=== PATIENT | female | born 1965 | race Caucasian/White ===

== ENCOUNTER → 2022-11-07 11:15 | Outpatient (BNVA) | payer BC, SELFPAY | PROVIDERS: PCP Physician Assistant Medical; Visit Provider Nurse Practitioner Family | DX: Z13.89 Encounter for screening for other disorder (principal) ==

== ENCOUNTER 2022-11-27 12:48 | Outpatient (REF) | payer BC, SELFPAY ==
--- NOTE | 2022-11-27 | EMG_ITS ---
Please see scanned EMG / Nerve Conduction Report. MTDD
== END 2022-11-27 12:49 | disposition home or self-care (01) ==
LOC: HO.NEURO 12:48
PROVIDERS: PCP Psychiatry & Neurology Psychiatry; Visit Provider Nurse Practitioner Family
DX: R20.2 Paresthesia of skin (principal)
CPT/HCPCS: 95885; 95913

== ENCOUNTER → 2023-02-06 09:13 | Outpatient (BNVA) | payer BC, SELFPAY | PROVIDERS: PCP Internal Medicine; Visit Provider Nurse Practitioner Family ==

== ENCOUNTER 2023-08-04 11:19 | Outpatient (AMB) | payer BC, SELFPAY ==
--- NOTE | 2023-08-04 11:29 | MHC.OFFVIS ---
Intake Vital Signs 08/04/23 11:31 Height 5 ft 1.5 in Weight 160 lb 4 oz BMI 29.8 BP 110/82 Blood Pressure Location Rt brachial Position Sitting Intake Visit Reasons: 6m follow up/Confirmed Intake Note: Patient presents for 6 month follow up. Patient states no issues or concerns today. Allergies No Known Allergies Allergy (Verified 08/04/23 11:32) Medication List - Last Reconciled 08/04/23 by CONNOR Reyes albuterol sulfate 90 mcg/actuation 2 puffs inhalation Q4-6H PRN aspirin (Aspirin Childrens) 81 mg orally QHS; 30 days gabapentin 200 mg PO TID levetiracetam 1,000 mg PO Q12H 30 days metoprolol tartrate (Lopressor) 50 mg PO DAILY rosuvastatin 20 mg PO DAILY valsartan-hydrochlorothiazide 160-12.5 mg (Diovan HCT) 1 tab PO DAILY HPI HPI Comments History of Present Illness Details 58-yr-old female presents for f/u visit. Pt is scheduled for a f/u intracranial aneurysm stenting at [facility] next week. Pt reports her last seizure like activity was a month or two ago- had the start of a seizure w/o loss of consciousness. Afterwards, she realized that she had skipped a dose of her Keppra. Very rarely may have an episode of sharlene vu. Headaches have been stable, not overly bothersome. Had been using Tylenol and Ibuprofen for an interval costochondritis- Iburpfen now on hold. Her neuropathy symptoms are not bothersome at this time. She has not done the lab work up yet- she did not realize she needed to. She notes that she just learned her son who is 30 has been diagnosed with seizure. His seizure symptoms are very similar to hers- sharlene vu sensation, nasal sensation, GI upset (although his is nausea where hers is a whooshing sensation), passing out, and mostly nocturnal. Her son would often fall asleep while driving and has been in many MVAs. Her maternal great grandfather would often pass out. She is concerned that she may have a genetic etiology to her seizures, as she also has a 28 yo dtr. Initial HPI from 09/11/22: Pt reports that she was in her usual state of health, when on 06/06/22, her found her in bed- she was making noses, had full body stiffness, urinary incontinence. This lasted about 15 minutes. When she came to, the adult school teacher were present. She did not recognize her or understand why the adult school teacher were in the house. She was brought to [facility] and was admitted. On EEG, she was found to have right sided partial seizure activity - and today pt notes that during the EEG she had her typical POTs s/s. 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 No additional flow-limiting stenosis or aneurysm identified. She was started on Keppra, and her Gabapentin dose was decreased to 200mg tid. She has not had any additional seizure activity since. She is not currently driving. She was referred to local neurosurgeon, but could not be seen locally. She has vascular neurosurgeon consult with Dr Chuck Browne at [facility] on 09/20. She has had normal HST. She described her h/o POTS. She states this started about 9-10 yrs ago- her initial symptoms were a whooshing abdominal sensation, which would come on out of the blue, even when sleeping. Also BLE tiredness and increased fatigability. This would be associated with syncope w/o convulsions, however once she realized when she was feeling pre-syncopal, she was able to prevent the syncope by laying down. She has had about 5 syncopal episodes in total. She seen by Dr Artem Galvez (renal), and has had Tilt table test, 24 hrs BP monitor. Per pt, her BP was prone to dropping significantly at night. She was managed with fluids, salt, and anti-HTN tx, as well as Prempo. She has been having 1 day of POTs s/s a month, which she again managed conservatively by laying down/resting. She notes that since starting Keppra, she has not had any further POTs-like episodes. [facility] Surgical History H/O tubal ligation Hx of cholecystectomy H/O breast biopsy Family History Mother Breast cancer Stroke Father Asthma Myocardial infarct HTN (hypertension) Cancer Son Heart defect Social History Alcohol intake: current Alcohol intake frequency: holidays/special occasions only Patient Tobacco Use Status: Former Tobacco user Quit Date: 2012 Review of Systems Const All systems reviewed & are unremarkable except as noted in HPI and below Physical Exam Vital Signs: Last Vital Signs BP 110/82 08/04/23 11:31 BMI result Body Mass Index 29.8 Const General: cooperative and no acute distress Orientation/consciousness: patient oriented x3 HEENT Head: Yes normocephalic Resp Effort & Inspection: normal respiratory effort and able to speak in complete sentences Neuro General: patient oriented x3, gait normal and CN's II-XI intact bilaterally Cognition (Neuro): normal cognition Motor exam (neuro): 5/5 motor strength present throughout Psych Appearance: grossly normal Mental Status: mental status grossly normal Speech and movement: Normal speech and movement present Affect: normal affect Attitude: cooperative Thought process: Normal thought process present Thought content: Normal thought content present Insight: Good insight present (Psych) Judgement: Good judgement present (Psych) Assessment & Plan Assessment & Plan (1) Seizure: Code(s): R56.9 - Unspecified convulsions (2) Migraine without aura: Code(s): G43.009 - Migraine without aura, not intractable, without status migrainosus (3) Intracerebral aneurysm: Comment: Brain MRI/MRA showed right posterior communicating artery 0.9 x 1.3 cm aneurysm projecting into the medial right temporal lobe. Code(s): I67.1 - Cerebral aneurysm, nonruptured (4) S/P coil embolization of cerebral aneurysm: Code(s): Z98.890 - Other specified postprocedural states (5) Peripheral axonal neuropathy: Comment: sensory Code(s): G62.89 - Other specified polyneuropathies Plan For seizure and intracerebral aneurysm s/p coiling: Continue Keppra to 1000mg bid Continue Gabapentin 200mg tid. Will refer pt to genetics to assess for genetic etiologies of seizure d/o. May hold ASA 81mg qhs- per neurodurgeon. Continue Rosuvastin. Continue to optimize BP control. Vascular neurosurgery f/u as scheduled for intracranial stenting. Future consideration- in-lab sleep study to further assess for sleep apnea and nocturnal hypoxemia- was denied. As notcurnal hypoexmia on her HST was <90% for 5 min of study, < 88% for 2 min (0% of study)- will monitor. ? For POTs: Again as the primary POTs s/s have stopped after recent increase in Keppra, I suspect these episodes may very well have been seizure activity. Will monitor. ? For migraine: Tylenol and Ibuprofen prn sparingly. Pt has tried migraine prevention tx's in the past- unsure which but caused cognitive difficulties. May trial Nurtec ODT 75mg sample 1 tab qd Pt did not tolerate Ubrelvy 50-100mg prn (max 200mg/day). ? 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 Hold labs orders for now- will check labs for common etiologies in f/u ? f/u in 6 months or sooner prn Orders: Referrals Genetics Referral R56.9 - Unspecified convulsions Coding Level of Care Code Est Pt Level 4 (06080) Diagnoses Seizure R56.9 Migraine without aura G43.009 Intracerebral aneurysm I67.1 S/P coil embolization of cerebral aneurysm Z98.890 Peripheral axonal neuropathy G62.89
[2023-08-04 11:31] VITALS: BP 110/82; BMI 29.8
== END 2023-08-04 12:15 | disposition home or self-care (01) ==
PROVIDERS: Visit Provider Nurse Practitioner Family
DX: R56.9 Unspecified convulsions (principal); G43.009 Migraine without aura, not intractable, without status migrainosus; I67.1 Cerebral aneurysm, nonruptured; Z98.890 Other specified postprocedural states; G62.89 Other specified polyneuropathies
CPT/HCPCS: 99214

== ENCOUNTER → 2023-08-04 11:19 | Outpatient (BNVA) | payer BC, SELFPAY | PROVIDERS: Visit Provider Nurse Practitioner Family ==

== ENCOUNTER 2024-02-05 10:34 | Outpatient (AMB) | payer BC, SELFPAY ==
--- NOTE | 2024-02-05 11:10 | MHC.OFFVIS ---
Vital Signs 02/05/24 11:20 Height 5 ft 1.5 in Weight 147 lb 6 oz BMI 27.4 BP 115/72 Blood Pressure Location Lt brachial Position Sitting Pulse 55 Pulse Source Pulse Oximeter Pulse Oximetry (%) 95 Oxygen Delivery Method Room Air Intake Visit Reasons: 6 mnts f/u for Seizures-CONF Intake Note: Patient presents for 6 months f/u. Had a little seizure yesterday and didn't loose cautiousness. Allergies No Known Allergies Allergy (Verified 02/05/24 11:16) Medication List - Last Reconciled 02/05/24 by CONNOR Reyes albuterol sulfate 90 mcg/actuation 2 puffs inhalation Q4-6H PRN aspirin (Aspirin Childrens) 81 mg orally QHS; 30 days gabapentin 200 mg PO TID levetiracetam 1,000 mg PO Q12H 30 days metoprolol tartrate (Lopressor) 50 mg PO DAILY prasugrel 5 mg PO DAILY rosuvastatin 20 mg PO DAILY topiramate 25 - 50 mg (1 - 2 x 25 mg) PO BEDTIME 30 days valsartan-hydrochlorothiazide 160-12.5 mg (Diovan HCT) 1 tab PO DAILY HPI Comments Details: 58-yr-old female presents for f/u visit, accompanied by her friend. Pt denies any significant interval medical changes. Pt endorses the following interval medical history changes: In Jul, she underwent right intracranial vessel stenting d/t opening in vessel . She is due for f/u brain MRI and vascular neurosurgeon appt in March 19. Overall, she states she has been better. Yesterday, she had a small episode of feeling a strange sensation in her nose f/b GI queasiness/flipping sensation, holger vu (same phrase repeating), lightheadedness and weakness, but no LOC. Lasted about 1 minute. Was able to walk into her kitchen, turn the stove off, and then lie down and rest, and she felt better. She was out gardening the day before. The last episode was in January 2023. She continues to have daily headache. Did not tolerate Nurtec- caused her to feel out of it. Baseline headache characteristics: Daily usually left sided throbbing headache a/w photophobia, phonophobia. Twice she has had a visual aura- like a kaledioscope. She used to have more severe menstrual migraine. Initial HPI from 09/11/22: Pt reports that she was in her usual state of health, when on 06/06/22, her found her in bed- she was making noses, had full body stiffness, urinary incontinence. This lasted about 15 minutes. When she came to, the rim technician were present. She did not recognize her or understand why the rim technician were in the house. She was brought to [facility] and was admitted. On EEG, she was found to have right sided partial seizure activity - and today pt notes that during the EEG she had her typical POTs s/s. 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 No additional flow-limiting stenosis or aneurysm identified. She was started on Keppra, and her Gabapentin dose was decreased to 200mg tid. She has not had any additional seizure activity since. She is not currently driving. She was referred to local neurosurgeon, but could not be seen locally. She has vascular neurosurgeon consult with Dr Chuck Browne at [facility] on 09/20. She has had normal HST. She described her h/o POTS. She states this started about 9-10 yrs ago- her initial symptoms were a whooshing abdominal sensation, which would come on out of the blue, even when sleeping. Also BLE tiredness and increased fatigability. This would be associated with syncope w/o convulsions, however once she realized when she was feeling pre-syncopal, she was able to prevent the syncope by laying down. She has had about 5 syncopal episodes in total. She seen by Dr Artem Galvez (renal), and has had Tilt table test, 24 hrs BP monitor. Per pt, her BP was prone to dropping significantly at night. She was managed with fluids, salt, and anti-HTN tx, as well as Prempo. She has been having 1 day of POTs s/s a month, which she again managed conservatively by laying down/resting. She notes that since starting Keppra, she has not had any further POTs-like episodes. [facility] Surgical History H/O tubal ligation Hx of cholecystectomy H/O breast biopsy Family History Mother Breast cancer Stroke Father Asthma Myocardial infarct HTN (hypertension) Cancer Son Heart defect Social History Alcohol intake: current Alcohol intake frequency: holidays/special occasions only Patient Tobacco Use Status: Former Tobacco user Quit Date: 2012 Physical Exam Vital Signs: Last Vital Signs Pulse 55 02/05/24 11:20 BP 115/72 02/05/24 11:20 Pulse Ox 95 02/05/24 11:20 Oxygen Delivery Method Room Air 02/05/24 11:20 BMI result Body Mass Index 27.4 Const General: cooperative and no acute distress Orientation/consciousness: patient oriented x3 Resp Effort & Inspection: normal respiratory effort and able to speak in complete sentences Neuro General: patient oriented x3 Cranial nerves: Yes CN's II-XII intact bilaterally Cognition (Neuro): normal cognition Psych Appearance: grossly normal Mental Status: mental status grossly normal Speech and movement: Normal speech and movement present Affect: normal affect Attitude: cooperative Assessment & Plan Assessment & Plan (1) Seizure: Code(s): R56.9 - Unspecified convulsions Category: Medical (2) Migraine without aura: Code(s): G43.009 - Migraine without aura, not intractable, without status migrainosus Category: Medical (3) Migraine with aura: Comment: 2 episodes of migraine w/ visual aura Code(s): G43.109 - Migraine with aura, not intractable, without status migrainosus Category: Medical (4) S/P coil embolization of cerebral aneurysm: Code(s): Z98.890 - Other specified postprocedural states Category: Surgical (5) Peripheral axonal neuropathy: Comment: sensory Code(s): G62.89 - Other specified polyneuropathies Category: Medical Plan For seizure and intracerebral aneurysm s/p coiling: Continue Keppra to 1000mg bid Continue Gabapentin 200mg tid. Pt has been referred to [facility] genetics to assess for genetic etiologies of seizure d/o- appt is in Apr. Continue ASA 81mg qhs and Prasugrel 5mg qd. Continue Rosuvastin. Continue to optimize BP control. Vascular neurosurgery f/u as scheduled. Future consideration- in-lab sleep study to further assess for sleep apnea and nocturnal hypoxemia- was denied. As nocturnal hypoexmia on her HST was <90% for 5 min of study, < 88% for 2 min (0% of study)- will monitor. ? For POTs: Again as the primary POTs s/s have stopped after recent increase in Keppra, I suspect these episodes may very well have been seizure activity. Will monitor. ? For migraine: Tylenol and Ibuprofen prn sparingly. Trial Topiramate 25-50mg qhs- may help w/ breakthrough seizure aura s/s. May use Tylenol prn- encouraged reducing daily use. Pt did not tolerate Nurtec ODT 75mg or Ubrelvy 50-100mg prn (max 200mg/day). ? 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 Hold labs orders for now- will check labs for common etiologies. ? f/u in 6 months or sooner prn Medications: New topiramate 25 - 50 mg (1 - 2 x 25 mg) PO BEDTIME 30 days 60 tabs 3RF Coding Level of Care Code Est Pt Level 4 (97960) Diagnoses Seizure R56.9 Migraine without aura G43.009 Migraine with aura G43.109 S/P coil embolization of cerebral aneurysm Z98.890 Peripheral axonal neuropathy G62.89
[2024-02-05 11:20] VITALS: BP 115/72; PULSE 55; O2SAT 95; BMI 27.4
== END 2024-02-05 12:14 | disposition home or self-care (01) ==
PROVIDERS: PCP Internal Medicine; Visit Provider Nurse Practitioner Family
DX: R56.9 Unspecified convulsions (principal); G43.009 Migraine without aura, not intractable, without status migrainosus; G43.109 Migraine with aura, not intractable, without status migrainosus; Z98.890 Other specified postprocedural states; G62.89 Other specified polyneuropathies
CPT/HCPCS: 99214

== ENCOUNTER → 2024-02-05 10:34 | Outpatient (BNVA) | payer BC, SELFPAY | PROVIDERS: PCP Internal Medicine; Visit Provider Nurse Practitioner Family ==

== ENCOUNTER 2024-08-23 15:14 | Outpatient (AMB) | payer BC, SELFPAY ==
--- NOTE | 2024-08-23 15:16 | MHC.OFFVIS ---
Vital Signs 08/23/24 15:19 Height 5 ft 1.5 in Weight 145 lb BMI 27.0 BP 116/80 Blood Pressure Location Lt brachial Position Sitting Pulse 61 Pulse Source Pulse Oximeter Pulse Oximetry (%) 97 Oxygen Delivery Method Room Air Intake Visit Reasons: 6 Month F/U Intake Note: Patient presents for a 6 mo fu for seizures. Super[facility] [employer] Animal Facility Required: No Accompanied by: Self / Same As Patient Allergies No Known Allergies Allergy (Verified 08/23/24 15:19) Medication List - Last Reconciled 08/23/24 by CONNOR Reyes albuterol sulfate 90 mcg/actuation 2 puffs inhalation Q4-6H PRN aspirin (Aspirin Childrens) 81 mg orally QHS; 30 days gabapentin 300 mg PO TID levetiracetam 1,000 mg PO Q12H 30 days metoprolol tartrate (Lopressor) 50 mg PO DAILY prasugrel 2.5 mg PO DAILY rosuvastatin 20 mg PO DAILY valsartan-hydrochlorothiazide 160-12.5 mg (Diovan HCT) 1 tab PO DAILY HPI Comments Details: 59-yr-old female presents for f/u visit of seizure and intracerebral aneurysm s/p coiling and headache. Pt denies any significant interval medical changes. Pt had neurosurgery consult- interval imaging reassuring- no sx interventions indicated at this time. Has had genetic testing- results pending Her father recently was dx'd w/ TIA and 2 small intracranial aneurysms. Pt reports that she has only had one breakthrough bothersome episode. Otherwise no other seizure activity. Headaches are stable- triggered by stress, odors, bending over for too long. Has stopped weeding etc to avoid triggering headache. She never started Topiramate- as she was hesitant to take this while on vacation as she did not want to take this as she might be consuming alcohol. Previously did not tolerate Nurtec- caused her to feel out of it. Baseline headache characteristics: Daily usually left sided throbbing headache a/w photophobia, phonophobia. Twice she has had a visual aura- like a kaledioscope. She used to have more severe menstrual migraine. Had dental CT, and was told CT showed evidence of sleep apnea. She does endorse snoring, snoring waking herself up, unrefreshing sleep. She endorses being tired, but attributes this to her medications. Denies involuntarily falling asleep. Previous HST in 2021 showed AHI 1/hr. Initial HPI from 09/11/22: Pt reports that she was in her usual state of health, when on 06/06/22, her found her in bed- she was making noses, had full body stiffness, urinary incontinence. This lasted about 15 minutes. When she came to, the company controller were present. She did not recognize her or understand why the company controller were in the house. She was brought to [facility] and was admitted. On EEG, she was found to have right sided partial seizure activity - and today pt notes that during the EEG she had her typical POTs s/s. 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 No additional flow-limiting stenosis or aneurysm identified. She was started on Keppra, and her Gabapentin dose was decreased to 200mg tid. She has not had any additional seizure activity since. She is not currently driving. She was referred to local neurosurgeon, but could not be seen locally. She has vascular neurosurgeon consult with Dr Chuck Browne at [facility] on 09/20. She has had normal HST. She described her h/o POTS. She states this started about 9-10 yrs ago- her initial symptoms were a whooshing abdominal sensation, which would come on out of the blue, even when sleeping. Also BLE tiredness and increased fatigability. This would be associated with syncope w/o convulsions, however once she realized when she was feeling pre-syncopal, she was able to prevent the syncope by laying down. She has had about 5 syncopal episodes in total. She seen by Dr Artem Galvez (renal), and has had Tilt table test, 24 hrs BP monitor. Per pt, her BP was prone to dropping significantly at night. She was managed with fluids, salt, and anti-HTN tx, as well as Prempo. She has been having 1 day of POTs s/s a month, which she again managed conservatively by laying down/resting. She notes that since starting Keppra, she has not had any further POTs-like episodes. [facility] Surgical History H/O tubal ligation Hx of cholecystectomy H/O breast biopsy Family History Mother Breast cancer Stroke Father Asthma Myocardial infarct HTN (hypertension) Cancer Son Heart defect Social History Alcohol intake: current Alcohol intake frequency: holidays/special occasions only Patient Tobacco Use Status: Former Tobacco user Physical Exam Vital Signs: Last Vital Signs Pulse 61 08/23/24 15:19 BP 116/80 08/23/24 15:19 Pulse Ox 97 08/23/24 15:19 Oxygen Delivery Method Room Air 08/23/24 15:19 BMI result Body Mass Index 27.0 Const General: cooperative and no acute distress Orientation/consciousness: patient oriented x3 Resp Effort & Inspection: normal respiratory effort and able to speak in complete sentences Neuro General: patient oriented x3 Cranial nerves: Yes CN's II-XII intact bilaterally Cognition (Neuro): normal cognition Psych Appearance: grossly normal Mental Status: mental status grossly normal Speech and movement: Normal speech and movement present Affect: normal affect Attitude: cooperative Assessment & Plan Assessment & Plan (1) Seizure: Code(s): R56.9 - Unspecified convulsions Category: Medical (2) Migraine without aura: Code(s): G43.009 - Migraine without aura, not intractable, without status migrainosus Category: Medical (3) Migraine with aura: Comment: 2 episodes of migraine w/ visual aura Code(s): G43.109 - Migraine with aura, not intractable, without status migrainosus Category: Medical (4) S/P coil embolization of cerebral aneurysm: Code(s): Z98.890 - Other specified postprocedural states Category: Surgical (5) Peripheral axonal neuropathy: Comment: sensory Code(s): G62.89 - Other specified polyneuropathies Category: Medical Plan For seizure and intracerebral aneurysm s/p coiling: Continue Keppra to 1000mg bid Continue Gabapentin 200mg tid. F/u w/ [facility] [employer] as scheduled- genetic testing results pending. Continue ASA 81mg qhs and Prasugrel 5mg qd- per neurosurgery. Continue Rosuvastin. Continue to optimize BP control. Vascular neurosurgery f/u as scheduled. Future consideration- in-lab sleep study to further assess for sleep apnea and nocturnal hypoxemia- was denied. As nocturnal hypoxemia on her HST was <90% for 5 min of study, < 88% for 2 min (0% of study)- will monitor. ? For POTs: Again as the primary POTs s/s have stopped after recent increase in Keppra, I suspect these episodes may very well have been seizure activity. Will monitor. ? For migraine: Tylenol and Ibuprofen prn sparingly. Hold Topiramate 25-50mg qhs- pt hesitant to add additional medication. May use Tylenol prn- encouraged reducing daily use. Previous trials- Pt did not tolerate Nurtec ODT 75mg or Ubrelvy 50-100mg prn (max 200mg/day). ? 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 Continue Gabapentin 300mg tid Request recent lab results from PCP. ? f/u in 6 months or sooner prn Medications: Refilled levetiracetam 1,000 mg PO Q12H 30 days 60 tabs 6RF aspirin (Aspirin Childrens) 81 mg orally QHS; 30 days 30 tabs 6RF Discontinued topiramate Discontinued Reason: Doctor's Order 25 - 50 mg (1 - 2 x 25 mg) PO BEDTIME 30 days 60 tabs 3RF Coding Level of Care Code Est Pt Level 4 (32545) Diagnoses Seizure R56.9 Migraine without aura G43.009 Migraine with aura G43.109 S/P coil embolization of cerebral aneurysm Z98.890 Peripheral axonal neuropathy G62.89
[2024-08-23 15:19] VITALS: BP 116/80; PULSE 61; O2SAT 97; BMI 27.0
== END 2024-08-23 16:00 | disposition home or self-care (01) ==
PROVIDERS: PCP Internal Medicine; Visit Provider Nurse Practitioner Family
DX: R56.9 Unspecified convulsions (principal); G43.009 Migraine without aura, not intractable, without status migrainosus; G43.109 Migraine with aura, not intractable, without status migrainosus; Z98.890 Other specified postprocedural states; G62.89 Other specified polyneuropathies
CPT/HCPCS: 99214

== ENCOUNTER → 2024-08-23 15:14 | Outpatient (BNVA) | payer BC, SELFPAY | PROVIDERS: PCP Internal Medicine; Visit Provider Nurse Practitioner Family ==

== ENCOUNTER 2025-02-25 11:15 | Outpatient (AMB) | payer BC, SELFPAY ==
[2025-02-25 11:51] VITALS: BP 100/64; PULSE 69; O2SAT 96; BMI 27.8
--- NOTE | 2025-02-25 11:51 | A.OFFVIS_ITS ---
Vital Signs 02/25/25 11:51 Height 5 ft 1 in Weight 147 lb BMI 27.8 BP 100/64 Blood Pressure Location Rt brachial Position Sitting Pulse 69 Pulse Source Pulse Oximeter Pulse Oximetry (%) 96 Oxygen Delivery Method Room Air Intake Visit Reasons: Follow up 6mo Intake Note: Patient presents 6 month follow up for migraines/seizures Occupational Therapy Aides Teacher Required: No Accompanied by: Self / Same As Patient Allergies No Known Allergies Allergy (Verified 02/25/25 11:51) Medication List - Last Reconciled 02/25/25 by CONNOR Reyes albuterol sulfate 90 mcg/actuation 2 puffs inhalation Q4-6H PRN aspirin (Aspirin Childrens) 81 mg orally QHS; 30 days gabapentin 300 mg PO TID levetiracetam 1,000 mg PO Q12H 30 days metoprolol tartrate (Lopressor) 50 mg PO DAILY prasugrel HCl 2.5 mg PO DAILY rosuvastatin 20 mg PO DAILY valsartan-hydrochlorothiazide 160-12.5 mg (Diovan HCT) 1 tab PO DAILY HPI Comments Details: 59-yr-old female presents for f/u visit of seizure and intracerebral aneurysm s/p coiling and headache. Pt denies any significant interval medical changes. Pt had neurosurgery f/u- interval imaging reassuring. Is being slowly weaned off her anticoagulant. And now will brandee f/u. Has had genetic testing- results were negative. After father recently was dx'd w/ TIA and 2 small intracranial aneurysms, her sister was tested nad she does have 1 intrcranial anueyrsm as well. Pt's son and dtr will be screened for intracranial aneurysm as well. Pt denies any interval seizure activity. Careful to avoid bending over too long, this can trigger episodes. Headaches are better- triggered by stress, odors. Has been able to take a bit less Tylenol. Baseline headache characteristics: Daily usually left sided throbbing headache a/w photophobia, phonophobia. Twice she has had a visual aura- like a kaledioscope. She used to have more severe menstrual migraine. Pt reports her leg symptoms are stable- she does have neuropathic pain, more so at night. Denies swelling. States BP is low today at 100/64, but does tend to go up and down. She is compliant with her BP regimen. Has annual BLE US with vascular- has upcoming f/u to review results. Patient reports she has snoring last since investing in an adjustable mattress, and is able to sleep with her head elevated. Previous dental CT, and was told CT showed evidence of sleep apnea. Previous HST in 2021 showed AHI 1/hr. Initial HPI from 09/11/22: Pt reports that she was in her usual state of health, when on 06/06/22, her found her in bed- she was making noses, had full body stiffness, urinary incontinence. This lasted about 15 minutes. When she came to, the buffing wheel operator were present. She did not recognize her or understand why the buffing wheel operator were in the house. She was brought to [facility] and was admitted. On EEG, she was found to have right sided partial seizure activity - and today pt notes that during the EEG she had her typical POTs s/s. 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 No additional flow-limiting stenosis or aneurysm identified. She was started on Keppra, and her Gabapentin dose was decreased to 200mg tid. She has not had any additional seizure activity since. She is not currently driving. She was referred to local neurosurgeon, but could not be seen locally. She has vascular neurosurgeon consult with Dr Chuck Browne at [facility] on 09/20. She has had normal HST. She described her h/o POTS. She states this started about 9-10 yrs ago- her initial symptoms were a whooshing abdominal sensation, which would come on out of the blue, even when sleeping. Also BLE tiredness and increased fatigability. This would be associated with syncope w/o convulsions, however once she realized when she was feeling pre-syncopal, she was able to prevent the syncope by laying down. She has had about 5 syncopal episodes in total. She seen by Dr Artem Galvez (renal), and has had Tilt table test, 24 hrs BP monitor. Per pt, her BP was prone to dropping significantly at night. She was managed with fluids, salt, and anti-HTN tx, as well as Prempo. She has been having 1 day of POTs s/s a month, which she again managed conservatively by laying down/resting. She notes that since starting Keppra, she has not had any further POTs-like episodes. [facility] History H/O tubal ligation Hx of cholecystectomy H/O breast biopsy Family History Mother Breast cancer Stroke Father Asthma Myocardial infarct HTN (hypertension) Cancer Son Heart defect Social History Alcohol intake: current Alcohol intake frequency: holidays/special occasions only Patient Tobacco Use Status: Former Tobacco user Physical Exam Vital Signs: Last Vital Signs Pulse 69 02/25/25 11:51 BP 100/64 02/25/25 11:51 Pulse Ox 96 02/25/25 11:51 Oxygen Delivery Method Room Air 02/25/25 11:51 BMI result Body Mass Index 27.8 Const General: cooperative and no acute distress Orientation/consciousness: patient oriented x3 Resp Effort & Inspection: normal respiratory effort and able to speak in complete sentences Neuro General: patient oriented x3 Cranial nerves: Yes CN's II-XII intact bilaterally Cognition (Neuro): normal cognition Psych Appearance: grossly normal Mental Status: mental status grossly normal Speech and movement: Normal speech and movement present Affect: normal affect Attitude: cooperative Assessment & Plan Assessment & Plan (1) Seizure: Code(s): R56.9 - Unspecified convulsions Category: Medical (2) Migraine without aura: Code(s): G43.009 - Migraine without aura, not intractable, without status migrainosus Category: Medical Qualifiers: Intractability: not intractable Status migrainosus presence: without status migrainosus Qualified Code(s): G43.009 - Migraine without aura, not intractable, without status migrainosus (3) Migraine with aura: Comment: 2 episodes of migraine w/ visual aura Code(s): G43.109 - Migraine with aura, not intractable, without status migrainosus Category: Medical Qualifiers: Intractability: not intractable Status migrainosus presence: without status migrainosus Qualified Code(s): G43.109 - Migraine with aura, not intractable, without status migrainosus (4) S/P coil embolization of cerebral aneurysm: Code(s): Z98.890 - Other specified postprocedural states Category: Surgical (5) Peripheral axonal neuropathy: Comment: sensory Code(s): G62.89 - Other specified polyneuropathies Category: Medical Plan For seizure and intracerebral aneurysm s/p coiling: Per patient, [facility] genetic testing did not reveal a genetic etiology for her and her son's seizure disorder. Continue Keppra to 1000mg bid Continue Gabapentin 200mg tid. Continue ASA 81mg qhs and weaning off Prasugrel- per neurosurgery. Continue Rosuvastin. Continue to optimize BP control. For sleep- continue to sleep with head elevated. Vascular neurosurgery f/u as scheduled. Vascular follow-up as scheduled Future consideration- in-lab sleep study to further assess for sleep apnea and nocturnal hypoxemia- was denied. As nocturnal hypoxemia on her HST was <90% for 5 min of study, < 88% for 2 min (0% of study)- will monitor. ? For POTs: Again as the primary POTs s/s have stopped after recent increase in Keppra, I suspect these episodes may very well have been seizure activity. Continuing to avoid activities requiring sustained bent over posture. Will monitor. ? For migraine: Tylenol and Ibuprofen prn sparingly. Hold Topiramate 25-50mg qhs- pt hesitant to add additional medication. May use Tylenol prn- encouraged reducing daily use. Previous trials- Pt did not tolerate Nurtec ODT 75mg or Ubrelvy 50-100mg prn (max 200mg/day). ? 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 Continue Gabapentin 300mg tid Reviewed labs from PCP- BMP within normal limits. Future considerations: Nervive nerve relief/alpha lipoic acid after weaning off of Prasugrel f/u in 6 months or sooner prn, then if stable, we will follow-up annually (alternating every 6 months with vascular Neurosurgery in [place]). Coding Level of Care Code Est Pt Level 4 (95065) Diagnoses Seizure R56.9 Migraine without aura and without status migrainosus, not intractable G43.009 Intractability: not intractable Status migrainosus presence: without status migrainosus Migraine with aura and without status migrainosus, not intractable G43.109 Intractability: not intractable Status migrainosus presence: without status migrainosus S/P coil embolization of cerebral aneurysm Z98.890 Peripheral axonal neuropathy G62.89
--- OUTSIDE RECORDS SUMMARY | 2025-02-25 12:11 | XMS_ITS | Clinical Summary ---
Author Organization [facility] [address] [facility] [address] Address [address] [place] [address] Phone Care Team Providers Care Pedal Assembler Name Role Phone Tamara Omalley MD Primary Care Prov ider Allergies No known active allergies Medications prasugreL (EFFIENT) 5 mg tablet 2.5 mg. 11/19/19 24 Active triamcinolone (KENALOG) 0.025 % cream APPLY TO AFFECTED AREA 3 TO 4 TIMES PER DAY NEEDED FOR IRRITATION 11/21/19 24 Active levETIRAcetam (KEPPRA) 1,000 mg tablet Take 1 Tablet by mouth 2 times daily. Active MULTIVITAMIN ORAL Take by mouth daily. Active valsartan-hydr oCHLOROthiazid e (DIOVAN-HCT) 160-12.5 mg per tablet TAKE 1 TABLET BY MOUTH EVERY DAY 90 tablet 1 08/06/20 24 Active aspirin 81 mg EC tablet Take 1 tablet (81 mg total) by mouth 1 (one) time each day. Active rosuvastatin (CRESTOR) 20 mg tablet TAKE 1 TABLET BY MOUTH EVERY DAY 90 tablet 1 01/25/20 25 Active albuterol HFA (PROAIR HFA ; PROVENTIL HFA ; VENTOLIN HFA) 90 mcg/actuation inhaler Inhale 2 puffs by mouth every 6 (six) hours if needed for wheezing. 1 each 5 02/08/20 25 025 Active metoprolol tartrate (LOPRESSOR) 50 mg tablet TAKE 1 TABLET BY MOUTH EVERY MORNING AND 1/2 TABLET EVERY EVENING 135 tablet 02/10/20 25 Active gabapentin (NEURONTIN) 300 mg capsule TAKE 1 CAPSULE BY MOUTH THREE TIMES A DAY 180 capsule 02/10/20 25 Active albuterol HFA (PROAIR HFA ; PROVENTIL HFA ; VENTOLIN HFA) 90 mcg/actuation inhaler Inhale 2 Puffs into the lungs every 6 hours as needed for Cough, Wheezing or Shortness of Breath for up to 363 days. 01/30/20 24 025 Discontinued metoprolol tartrate (LOPRESSOR) 50 mg tablet TAKE 1 TABLET BY MOUTH EVERY MORNING AND 1/2 TABLET EVERY EVENING 135 tablet 1 08/06/20 24 025 Discontinued gabapentin (NEURONTIN) 300 mg capsule Take 1 capsule (300 mg total) by mouth 3 (three) times a day. 180 each 1 08/06/20 24 025 Discontinued Active Problems Problem Noted Date Diagnosed Date Elevated hemoglobin A1c 04/17/2023 Seizure disorder ([facility] V24, [facility] V28) 03/29 Bilateral carotid artery stenosis 03/10/2023 Posterior cerebral aneurysm 01/06/2023 Overview (06/24/2024): Intracranial aneurysm stent seen at [facility] 08/18/2023 PAD (peripheral artery disease) ([facility] V24) COVID-19 virus infection 01/10/2021 Hematoma 12/19/2014 POTS (postural orthostatic tachycardia syndrome) 12/25/2012 Hyperlipidemia 09/01/2012 Overview (06/24/2024): Other and unspecified hyperlipidemia: 11/20/17 ASCVD risk 6.5% Urinary incontinence 04/09/2011 Essential hypertension, benign 12/29/2006 Spontaneous tension pneumothorax 09/02/2006 Overview (06/24/2024): in February, Encounters Date Type Department Care Team Description 12/28/2024 8:30 AM EDT Ancillary Procedure [facility] - [facility] [address] [facility] [address] [place] [id number] PAD (peripheral artery disease) ([facility] V24) 12/01/2024 Telephone Adult Medicine - [place] [address] [place] [address] Tamara Tinoco MD Referral from Last 3 Months Immunizations Name Administration Dates Next Due Influenza Quadravalent, MDCK , 0.5ml, preservative free (Flucelvax) 6mo and older 08/26/2023,06/17/2022,10/26/2021,06/16,11/16/2019,10/07/2018 Influenza Quadravalent, MDCK , 0.5ml, with preservative (Flucelvax) 6mo and older 10/07/2017 Influenza trivalent, 0.5mL ( Fluzone High-dose) 65yo and older 07/19/2010,06/13/2009,08/27/2007,08/28 Influenza trivalent, with pr eservative (Fluzone; Afluria) 6mo and older 07/19/2010,07/19/2010,06/13/2009,06/13,08/27/2007,08/27/2007,08/28/2005 Moderna SARS-CoV-2 COVID-19, mRNA, LNP-S, preservative free 01/13/2021,12/16/2020 Pneumococcal polysaccharide 23 valent (Pneumovax 23) 2yo and older 01/06/2013 TD, Adsorbed, Preservative Free 06/26/2005 Td Tetanus diptheria (Tdvax) 7yo and older 06/26/2005 Tdap Tetanus diptheria acell ular pertussis (Boostrix; Adacel) 7yo and older 10/07/2017 Surgical History Surgery Date Site/Laterality Comments VAGINAL DELIVERY PROCEDURE: HISTORICAL VAGINAL DELIVERY; COMMENT: 2 TUBAL LIGATION PROCEDURE: HISTORICAL TUBAL LIGATION BREAST BIOPSY PROCEDURE: BX BREAST; PERC NEEDLE CORE W/IMAG GUID; COMMENT: rt. breast bx-benign- BREAST BIOPSY 11/02/2019 Right PROCEDURE: FL BX BREAST W/DEVICE 1ST LESION ULTRASOUND GUID Medical History Medical History Date Comments Tobacco use disorder DX:Tobacco use disorder; COMMENT: Chantix prescribed 09/02/2006; quit 12/2011 Spontaneous tension pneumothorax DX:Spontaneous tension pneumothorax; COMMENT: 2004 Pulmonary collapse 02/27/2005 DX:Pulmonary collapse Unspecified essential hypertension 12/23/2005 DX:Unspecified essential hypertension Heart disease, unspecified 12/23/2005 DX:He art disease, unspecified Pneumonia DX:Pneumonia Tobacco use disorder 02/17/2006 DX:Tobacco use disorder; COMMENT: Quit Dec 2011 History of seizure DX:History of seizure Family history of cardiovasc ular disease DX:Family history of cardiov ascular disease Elevated hemoglobin A1c 04/17/2023 DX:Lucina alcaraz hemoglobin A1c Family History Medical History Relation Name Comments Asthma Father Heart attack Father x2 Hypertension Father Other cancer Father bladder; matern al GF with bladder Ca as well.-mets to lungs Other cancer Maternal Grandfather also aashish ne Ca Stroke Mother 38y clot per pt Diabetes Paternal Grandfather Other: pneumonia Son 1 Relation Name Status Comments Daughter Alive Father Alive survived bladde r ca Maternal Grandfather Maternal Grandmother 101 Mother 38y (Age 56) breast ca at 38, stroke after sx-->quadraplegia; dec from CHF Paternal Grandfather Paternal Grandmother Sister Alive Son 1 Son 2 Alive Social History Tobacco Use Types Packs/Day Years Used Date Smoking Tobacco: Former Cigarettes Smokeless Tobacco: Never Tobacco Cessation:Counseling Given: Not Answered Alcohol Use Standard Drinks/Week Comments Yes 0 (1 standard drink = 0.6 oz pur e alcohol) Comments No Sex and Gender Information Value Date Recorded Sex Assigned at Not on file Legal Sex Female 2:46 PM EST Gender Identity Not on file Sexual Orientation Not on file Obstetrics History Last Filed Vital Signs Vital Sign Reading Time Taken Comments Blood Pressure 104/65 11/01/2024 9:59 AM EST Pulse 81 11/01/2024 9:59 AM EST Temperature 36.9 ??C (98.5 ??F) 11/01/2024 9:59 AM ES T Respiratory Rate - - Oxygen Saturation 97% 11/01/2024 9:59 AM EST Inhaled Oxygen Concentration - - Weight 65 kg (143 lb 6.4 oz) 11/01/2024 9:59 AM EST Height 154.9 cm (5' 1 ) 11/01/2024 9:59 AM EST Body Mass Index 27.1 11/01/2024 9:59 AM EST Plan of Treatment Upcoming Encounters Date Type Department Care Team (Late st Contact Info) Description 03/01/2025 4:00 PM EDT Office Visit Vascular Surgery - [place] [address] [facility] [address] [place] [address] Kaitlynn Bailey PA [address] [place] [address] 04/22/2025 9:45 AM EDT Office Visit Adult Medicine - [place] [address] [place] [address] Chacho Sorenson PA [address] [place] [address] 07/29/2025 2:00 PM EDT Appointment Radiology Department - [address] [phone] Health Maintenance Due Date Last Done Comments Hepatitis B Vaccines (1 of 3 - 19+ 3-dose series) 1984 Pneumococcal Vaccine: 50+ Years (2 of 2 - PCV) 2015 01/06/2013 Zoster Vaccines (1 of 2) 2015 Colorectal Cancer Screening: Stool Based Tests (FOBT/FIT) 09/07/2022 Depression Screening 09/07/2022 HIV Screening 09/07/2022 Social Influencers of Health Screening 09/07/2022 COVID-19 Vaccine ( season) 2024 09/16/2021, 01/13/2021, 12/16/2020 Hypertension/CHF/CAD Annual BMP Blood Test 01/29/2025 01/30/2024, 01/30/2024 Influenza Vaccine (Season Ended) 2025 08/26/2023, 06/17/2022, 10/26/2021, Additional history exists Breast Cancer Screening 07/08/2026 07/08/20 24, 07/08/2024, 04/07/2023, Additional history exists DTaP,Tdap,and Td Vaccines (4 - Td or Tdap) 10/07/2027 10/07/2017, 06/26/2005, 06/26/2005 Cholesterol Screening (Lipid Panel) 12/21/2027 12/20/2022 Cervical Cancer Screening: HPV 01/07/2029 01/08/2024 RSV Immunization Adult Patients (1 - 1-dose 75+ series) 2040 Pneumococcal Vaccine: Pediatrics (0 to 5 Years) and At-Risk Patients (6 to 64 Years) Aged Out 01/06/2013 No longer eligible based on patient's age to complete this topic Hepatitis C Screening Completed 05/25/2018 HIB Vaccines Aged Out No longer eligi ble based on patient's age to complete this topic HPV Vaccines Aged Out No longer eligi ble based on patient's age to complete this topic Hepatitis A Vaccines Aged Out No long er eligible based on patient's age to complete this topic IPV Vaccines Aged Out No longer eligi ble based on patient's age to complete this topic MMR Vaccines Aged Out No longer eligi ble based on patient's age to complete this topic Meningococcal ACWY Vaccine Aged Out N o longer eligible based on patient's age to complete this topic Meningococcal B Vaccine Aged Out No l onger eligible based on patient's age to complete this topic RSV Immunization Patients Under 20 months Aged Out No longer eligible based on patient's age to complete this topic Varicella Vaccines Aged Out No longer eligible based on patient's age to complete this topic Procedures Procedure Name Priority Date/Time Associated Diagnosis Comments VAS US DUPLEX LOWER EXT ARTERIES BILAT WITH KAREEM Routine 12/28/2024 9:07 AM EDT PAD (peripheral artery disease) ([facility] V24) SCREENING MAMMOGRAPHY BI 2-VIEW BREAST INC CAD Routine 07/08/2024 3:11 PM EDT Encounter for screening mammogram for malignant neoplasm of breast ANNUAL BMP BLOOD TEST Routine 01/30/2024 HPV Routine 01/08/2024 LIPID PANEL Routine 12/20/2022 HEPATITIS C SCREENING Routine 05/25/2018 from Last 3 Months or Most Recently Relevant to Health Maintenance Results * Vascular US duplex lower extremity arteries bilateral with KAREEM (12/28/2024 9:07 AM EDT) Left Dist External Iliac PSV 167 cm/s CV VAS LAB Left Prox External Iliac PSV 137 cm/s CV VAS LAB Left AT dist sys PSV 53 cm/s CV VAS LAB Left AT mid sys PSV 47 cm/s CV VAS LAB Left AT prox sys PSV 36 cm/s CV VAS LAB Left DIE WELDER prox sys PSV 139 cm/s CV VAS LAB Left mid peroneal sys PSV 39 cm/s CV VAS LAB Left popliteal dist sys PSV 84 cm/s CV VAS LAB Left popliteal prox sys PSV 64 cm/s CV VAS LAB Left PT dist sys PSV 75 cm/s CV VAS LAB Left PT mid sys PSV 95 cm/s CV VAS LAB Left PT prox sys PSV 85 cm/s CV VAS LAB Left profunda sys PSV 52 cm/s CV VAS LAB Left super femoral dist sys PSV 62 cm/s CV VAS LAB Left super femoral mid sys PSV 71 cm/s CV VAS LAB Left super femoral prox sys PSV 97 cm/s CV VAS LAB Right Dist External Iliac PSV 155 cm/s CV VAS LAB Right Prox External Iliac PSV 177 cm/s CV VAS LAB Right AT dist sys PSV 60 cm/s CV VAS LAB Right AT mid sys PSV 45 cm/s CV VAS LAB Right AT prox sys PSV 62 cm/s CV VAS LAB Right DIE WELDER prox sys PSV 181 cm/s CV VAS LAB Right mid peroneal sys PSV 36 cm/s CV VAS LAB Right popliteal dist sys PSV 81 cm/s CV VAS LAB Right popliteal prox sys PSV 56 cm/s CV VAS LAB Right PT dist sys PSV 75 cm/s CV VAS LAB Right PT mid sys PSV 76 cm/s CV VAS LAB Right PT prox sys PSV 60 cm/s CV VAS LAB Right profunda sys PSV 169 cm/s CV VAS LAB Right super femoral dist sys PSV 58 cm/s CV VAS LAB Right super femoral mid sys PSV 78 cm/s CV VAS LAB Right super femoral prox sys PSV 95 cm/s CV VAS LAB Right arm BP 111 mmHg CV VAS LAB Left arm BP 119 mmHg CV VAS LAB Right posterior tibial 129 mmHg CV VAS LAB Right Dorsalis Pedis 108 mmHg CV VAS LAB Right KAREEM 1.08 CV VAS LAB Left posterior tibial 145 mmHg CV VAS LAB Left Dorsalis Pedis 133 mmHg CV VAS LAB Left KAREEM 1.22 CV VAS LAB Anatomical Region Laterality Modality Vascular, Abdomen Ultrasound Narrative 01/10/2025 8:46 AM EDT Right le. ??Normal ankle-brachial index (1.08). 2. ??There is evidence of moderate stenosis (20-49%) in the following arterial segments: Peroneal artery Left le. ??Normal ankle-brachial index (1.22). 2. ??There is evidence of moderate stenosis (20-49%) in the following arterial segments: VAN and peroneal artery Right KAREEM Right AP=380/61 Left KAREEM Left AP=698/61 Right Lower Arterial Duplex The distal external iliac artery has triphasic flow. The common femoral artery has triphasic flow. The profunda femoris artery has triphasic flow. The superficial femoral artery has triphasic flow. The popliteal artery has triphasic flow. The anterior tibial artery has triphasic flow. The posterior tibial artery has triphasic flow. The mid peroneal artery has biphasic flow. Left Lower Arterial Duplex The distal external iliac artery has triphasic flow. The common femoral artery has triphasic flow. The profunda femoris artery has triphasic flow. The superficial femoral artery has triphasic flow. The popliteal artery has triphasic flow. The anterior tibial artery has biphasic flow. The posterior tibial artery has triphasic flow. The mid peroneal artery has biphasic flow. Water Fitness Instructor Details A nguyen scale, color and doppler analysis ultrasound was performed. During the study longitudinal views were obtained. Pulsed wave doppler was performed. us Kaitlynn PIERSON CV VASCULAR PROCEDURES Final Result * SCREENING MAMMOGRAPHY BI 2-VIEW BREAST INC CAD (07/08/2024 3:11 PM EDT) Anatomical Region Laterality Modality Radiographic Sri ging 02/20/2023 1:53 PM EDT Narrative 07/09/2024 2:04 PM EDT This is a summary report. The complete report is available in the patient's medical record. If you cannot access the medical record, please contact the sending organization for a detailed fax or copy. BILATERAL 3D DIGITAL SCREENING MAMMOGRAM History: Routine screening. ??No current breast complaints. ??Family history of breast cancer in mother Comparison: Multiple priors dating back to 04/26/2022 Technique: Bilateral full-field digital 3D mammography was performed using standard CC and MLO projections CAD was used to evaluate this mammogram. Findings: Density: ??There are scattered areas of fibroglandular density-B RIGHT: No suspicious masses, groups of microcalcification or areas of architectural distortion identified. Stable typically benign parenchymal asymmetries. ??Upper outer posterior depth asymmetries are grossly stable. LEFT: No suspicious masses, groups of microcalcifications or areas of architectural distortion identified. Stable typically benign parenchymal asymmetries IMPRESSION: : 1. ??No mammographic evidence of malignancy. BI-RADS Category 2 benign findings Recommendation: Routine annual screening mammography is recommended [address] [id number] Procedure Note Erika Holcomb MD - 07/27/2024 This is a summary report. The complete report is available in thepatient's medical record. If you cannot access the medical record, pleasecontact the sending organization for a detailed fax or copy. BILATERAL 3D DIGITAL SCREENING MAMMOGRAM History: Routine screening. No current breast complaints. Family historyof breast cancer in mother Comparison: Multiple priors dating back to 04/26/2022 Technique: Bilateral full-field digital 3D mammography was performed usingstandard CC and MLO projections CAD was used to evaluate this mammogram. Findings: Density: There are scattered areas of fibroglandular density-B RIGHT: No suspicious masses, groups of microcalcification or areas ofarchitectural distortion identified. Stable typically benign parenchymalasymmetries. Upper outer posterior depth asymmetries are grosslystable. LEFT: No suspicious masses, groups of microcalcifications or areas ofarchitectural distortion identified. Stable typically benign parenchymalasymmetries IMPRESSION: : 1. No mammographic evidence of malignancy. BI-RADS Category 2 benign findings Recommendation: Routine annual screening mammography is recommended [address] [id number] Tamara Omalley MD IMG XR PROCEDURES Final Result * Annual BMP Blood Test (01/30/2024) Annual BMP Blood Test Abstracted [facility] Provider HEALTH MAINTENANCE Final Result * Cervical Cancer Screening: HPV (01/08/2024) [facility] Cervical Cancer Screening: HPV Negative, Abstracted [facility] Provider HEALTH MAINTENANCE Final Result * (ABNORMAL) Lipid panel (12/20/2022) [facility] LDL/HDL Ratio 4 0 - 4 Triglycerides 207(A) 0 - 150 mg/dL Cholesterol 167 0 - 200 mg/dL HDL 47 >=40 mg/dL LDL Cholesterol 79 0 - 100 mg/dL Blood Venous blood specimen / Unknown Result [facility] Provider LAB BLOOD ORDERABLES Amanda l Result * Hepatitis C Screening (05/25/2018) [facility] Hepatitis C Screening Abstracted Result [facility] Provider HEALTH MAINTENANCE Final Result from Last 3 Months or Most Recently Relevant to Health Maintenance Insurance [facility] Care Teams Pedal Assembler Relationship Specialty Start Date End Date Tamara Omalley MD [address] [place] [id number] PCP - General 02/05/11
== END 2025-02-25 12:19 | disposition home or self-care (01) ==
LOC: HO.HSMS 11:15
PROVIDERS: PCP Internal Medicine; Visit Provider Nurse Practitioner Family
DX: R56.9 Unspecified convulsions (principal); G43.009 Migraine without aura, not intractable, without status migrainosus; G43.109 Migraine with aura, not intractable, without status migrainosus; Z98.890 Other specified postprocedural states; G62.89 Other specified polyneuropathies
CPT/HCPCS: 99214

== ENCOUNTER → 2025-02-25 11:15 | Outpatient (BNVA) | payer BC, SELFPAY | PROVIDERS: PCP Internal Medicine; Visit Provider Nurse Practitioner Family ==

== ENCOUNTER 2025-08-23 09:16 | Outpatient (AMB) | payer BC, SELFPAY ==
--- NOTE | 2025-08-23 09:28 | A.OFFVIS_ITS ---
Vital Signs 08/23/25 09:35 Height 5 ft 1 in Weight 146 lb BMI 27.6 BP 100/70 Blood Pressure Location Rt brachial Position Sitting Pulse 68 Pulse Source Pulse Oximeter Pulse Oximetry (%) 93 Oxygen Delivery Method Room Air Intake Visit Reasons: Follow up 6mo Intake Note: Patient presents 6 month follow up for migraines/seizures Health Assessment And Treatment Teacher Required: No Accompanied by: Self / Same As Patient Allergies No Known Allergies Allergy (Verified 02/25/25 11:51) Medication List - Last Reconciled 08/23/25 by CONNOR Reyes albuterol sulfate 90 mcg/actuation 2 puffs inhalation Q4-6H PRN aspirin (Aspirin Childrens) 81 mg orally QHS; 30 days coenzyme Q10 400 mg PO DAILY 90 days gabapentin 300 mg PO TID levetiracetam 1,000 mg PO Q12H 30 days magnesium oxide 400 mg PO BEDTIME 90 days metoprolol tartrate (Lopressor) 50 mg PO DAILY prasugrel HCl 2.5 mg PO DAILY riboflavin (vitamin B2) 400 mg PO DAILY 90 days rosuvastatin 20 mg PO DAILY ubrogepant (Ubrelvy) 50 - 100 mg (0.5 - 1 x 100 mg) PO ONCE PRN 30 days valsartan-hydrochlorothiazide 160-12.5 mg (Diovan HCT) 1 tab PO DAILY HPI Comments Details: 59-yr-old female presents for f/u visit of seizure and intracerebral aneurysm s/p coiling and headache. Pt denies any significant interval medical changes. She has had only 2 episodes of the feeling like she might pass-out, but has not had any syncope. She is scheduled for neurosurgery f/u in Oct 2025. Headaches are about the same, but still daily migraine. Using Tylenol as needed, but wears off. She continues to have BLE neuropathic pain. Feels next year she will probably need to have vascular intervention for moderate BLE vascualr stenosis. Gabapentin helps. 02/25/2025, HPI: Pt had neurosurgery f/u- interval imaging reassuring. Is being slowly weaned off her anticoagulant. And now will brandee f/u. Has had genetic testing- results were negative. After father recently was dx'd w/ TIA and 2 small intracranial aneurysms, her sister was tested nad she does have 1 intrcranial anueyrsm as well. Pt's son and dtr will be screened for intracranial aneurysm as well. Pt denies any interval seizure activity. Careful to avoid bending over too long, this can trigger episodes. Headaches are better- triggered by stress, odors. Has been able to take a bit less Tylenol. Baseline headache characteristics: Daily usually left sided throbbing headache a/w photophobia, phonophobia. Twice she has had a visual aura- like a kaledioscope. She used to have more severe menstrual migraine. Pt reports her leg symptoms are stable- she does have neuropathic pain, more so at night. Denies swelling. States BP is low today at 100/64, but does tend to go up and down. She is compliant with her BP regimen. Has annual BLE US with vascular- has upcoming f/u to review results. Patient reports she has snoring last since investing in an adjustable mattress, and is able to sleep with her head elevated. Previous dental CT, and was told CT showed evidence of sleep apnea. Previous HST in 2021 showed AHI 1/hr. Initial HPI from 09/11/22: Pt reports that she was in her usual state of health, when on 06/06/22, her found her in bed- she was making noses, had full body stiffness, urinary incontinence. This lasted about 15 minutes. When she came to, the control systems drafting officer were present. She did not recognize her or understand why the control systems drafting officer were in the house. She was brought to [facility] and was admitted. On EEG, she was found to have right sided partial seizure activity - and today pt notes that during the EEG she had her typical POTs s/s. 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 No additional flow-limiting stenosis or aneurysm identified. She was started on Keppra, and her Gabapentin dose was decreased to 200mg tid. She has not had any additional seizure activity since. She is not currently driving. She was referred to local neurosurgeon, but could not be seen locally. She has vascular neurosurgeon consult with Dr Chuck Browne at [facility] on 09/20. She has had normal HST. She described her h/o POTS. She states this started about 9-10 yrs ago- her initial symptoms were a whooshing abdominal sensation, which would come on out of the blue, even when sleeping. Also BLE tiredness and increased fatigability. This would be associated with syncope w/o convulsions, however once she realized when she was feeling pre-syncopal, she was able to prevent the syncope by laying down. She has had about 5 syncopal episodes in total. She seen by Dr Artem Galvez (renal), and has had Tilt table test, 24 hrs BP monitor. Per pt, her BP was prone to dropping significantly at night. She was managed with fluids, salt, and anti-HTN tx, as well as Prempo. She has been having 1 day of POTs s/s a month, which she again managed conservatively by laying down/resting. She notes that since starting Keppra, she has not had any further POTs-like episodes. [facility] Surgical History H/O tubal ligation Hx of cholecystectomy H/O breast biopsy Family History Mother Breast cancer Stroke Father Asthma Myocardial infarct HTN (hypertension) Cancer Son Heart defect Social History Alcohol intake: current Alcohol intake frequency: holidays/special occasions only Patient Tobacco Use Status: Former Tobacco user Physical Exam Vital Signs: Last Vital Signs Pulse 68 08/23/25 09:35 BP 100/70 08/23/25 09:35 Pulse Ox 93 08/23/25 09:35 Oxygen Delivery Method Room Air 08/23/25 09:35 BMI result Body Mass Index 27.6 Const General: cooperative and no acute distress Orientation/consciousness: patient oriented x3 Resp Effort & Inspection: normal respiratory effort and able to speak in complete sentences Neuro General: patient oriented x3 Cranial nerves: Yes CN's II-XII intact bilaterally Cognition (Neuro): normal cognition Psych Appearance: grossly normal Mental Status: mental status grossly normal Speech and movement: Normal speech and movement present Affect: normal affect Attitude: cooperative Assessment & Plan Assessment & Plan (1) Seizure: Code(s): R56.9 - Unspecified convulsions Category: Medical (2) Migraine without aura: Code(s): G43.009 - Migraine without aura, not intractable, without status migrainosus Category: Medical Qualifiers: Status migrainosus presence: without status migrainosus Intractability: not intractable Qualified Code(s): G43.009 - Migraine without aura, not intractable, without status migrainosus (3) Migraine with aura: Comment: 2 episodes of migraine w/ visual aura Code(s): G43.109 - Migraine with aura, not intractable, without status migrainosus Category: Medical Qualifiers: Status migrainosus presence: without status migrainosus Intractability: not intractable Qualified Code(s): G43.109 - Migraine with aura, not intractable, without status migrainosus (4) S/P coil embolization of cerebral aneurysm: Code(s): Z98.890 - Other specified postprocedural states Category: Surgical (5) Peripheral axonal neuropathy: Comment: sensory Code(s): G62.89 - Other specified polyneuropathies Category: Medical Plan For seizure and intracerebral aneurysm s/p coiling: Per patient, [facility] genetic testing did not reveal a genetic etiology for her and her son's seizure disorder. Continue Keppra 1000mg bid Continue Gabapentin 200mg tid. Continue ASA 81mg qhs and weaning off Prasugrel- per neurosurgery. Continue Rosuvastin. Continue to optimize BP control. For sleep- continue to sleep with head elevated. Vascular neurosurgery f/u as scheduled. Vascular follow-up as scheduled Future consideration- in-lab sleep study to further assess for sleep apnea and nocturnal hypoxemia- was denied. As nocturnal hypoxemia on her HST was <90% for 5 min of study, < 88% for 2 min (0% of study)- will monitor. ? For POTs: Again as the primary POTs s/s have stopped after recent increase in Keppra, I suspect these episodes may very well have been seizure activity. Continuing to avoid activities requiring sustained bent over posture. Will monitor. ? For migraine prevention: Start Riboflavin 400mg qam Start C0-Q 10 400mg QAM- taken w/ higher-fat healthy food Start Magnesium 400mg QHS- seperate from Gabapentin by 2 hrs Continue Metoprolol- ordered for HTN management For acute migraine tx: No evidence for medication overuse headache. Trial Ubrogepant (Ubrelvy) 100mg tab, 1/2 - 1 tab (50-100mg) at onset of headache, may repeat in 2 hours. Max of 2 tabs (200mg) per 24 hours. * May adjunct with OTC Tylenol 650mg q 4 hours, Ibuprofen 600mg q 6 hours, or Naproxen 440mg q 12 hrs prn. 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 Continue Gabapentin 300mg tid Future considerations: Nervive nerve relief/alpha lipoic acid after weaning off of Prasugrel f/u in 6 months or sooner prn, then if stable, we will follow-up annually (alternating every 6 months with vascular Neurosurgery in [place]). Medications: New coenzyme Q10 Daily in a.m.. Take with higher fat food 400 mg PO DAILY 90 caps 3RF 90 days ubrogepant (Ubrelvy) take at onset of migraine, may repeat in 2hrs (may take w/ Ibuprofen) 50 - 100 mg (0.5 - 1 x 100 mg) PO ONCE PRN 16 tabs 3RF migraine headache 30 days riboflavin (vitamin B2) 400 mg PO DAILY 90 tabs 3RF 90 days magnesium oxide may hold for loose stools 400 mg PO BEDTIME 90 tabs 3RF 90 days Coding Level of Care Code Est Pt Level 4 (31737) Diagnoses Seizure R56.9 Migraine without aura and without status migrainosus, not intractable G43.009 Status migrainosus presence: without status migrainosus Intractability: not intractable Migraine with aura and without status migrainosus, not intractable G43.109 Status migrainosus presence: without status migrainosus Intractability: not intractable S/P coil embolization of cerebral aneurysm Z98.890 Peripheral axonal neuropathy G62.89
[2025-08-23 09:35] VITALS: BP 100/70; PULSE 68; O2SAT 93; BMI 27.6
--- OUTSIDE RECORDS SUMMARY | 2025-08-23 10:22 | XMS_ITS | Clinical Summary ---
Author Organization [facility] [address] [facility] l[address] Address [address] [place] [address] Phone Care Team Providers Care Utility Technician Name Role Phone Tamara Riddle MD Primary Care Prov ider Allergies No known active allergies Medications prasugreL (EFFIENT) 5 mg tablet 2.5 mg. 4 Active triamcinolone (KENALOG) 0.025 % cream APPLY TO AFFECTED AREA 3 TO 4 TIMES PER DAY NEEDED FOR IRRITATION 4 Active levETIRAcetam (KEPPRA) 1,000 mg tablet Take 1 Tablet by mouth 2 times daily. Active MULTIVITAMIN ORAL Take by mouth daily. Active aspirin 81 mg EC tablet Take 1 tablet (81 mg total) by mouth 1 (one) time each day. Active albuterol HFA (PROAIR HFA ; PROVENTIL HFA ; VENTOLIN HFA) 90 mcg/actuation inhaler Inhale 2 puffs by mouth every 6 (six) hours if needed for wheezing. 1 each 5 5 Active gabapentin (NEURONTIN) 300 mg capsule TAKE 1 CAPSULE BY MOUTH THREE TIMES A DAY 270 capsule 1 5 Active valsartan-hydr oCHLOROthiazid e (DIOVAN-HCT) 160-12.5 mg per tablet TAKE 1 TABLET BY MOUTH EVERY DAY 90 tablet 1 5 Active metoprolol tartrate (LOPRESSOR) 50 mg tablet Take 1 tablet (50 mg total) by mouth 2 (two) times a day. 180 each 1 5 Active Additional Information Patient taking differently:50 mg oral 2 times daily,50 mg in am and 25 mg in PM, Reported on 07/22/2025 bisacodyL (DULCOLAX) 5 mg EC tablet Take 2 tablets by mouth right before beginning bowel prep. See instructions provided by the office 2 tablet 5 Active polyethylene glycol (Golytely) 236-22.74-6.74 -5.86 gram solution Take 4L by mouth once for one dose. May substitue any PEG. Starting at 2PM the day before your procedure drink 1 8oz glasses at your own pace until you complete half of the gallon. Finish 2nd half of the gallon at 8PM. 4000 mL 5 Active rosuvastatin (CRESTOR) 20 mg tablet TAKE 1 TABLET BY MOUTH EVERY DAY 90 tablet 1 5 Active estradioL (ESTRACE) 0.01 % (0.1 mg/gram) vaginal cream insert 1g into the vagina twice a week 42.5 g 3 5 Active estradioL (ESTRACE) 0.01 % (0.1 mg/gram) vaginal cream Insert 1 g into the vagina at bedtime for 14 days. Then insert 1g into the vagina twice a week 42.5 g 3 5 025 Discontin ued(Reord er) Active Problems Problem Noted Date Diagnosed Date Elevated hemoglobin A1c 04/17/2023 Seizure disorder ([facility] V24, [facility] V28) 03/29 Bilateral carotid artery stenosis 03/10/2023 Posterior cerebral aneurysm 01/06/2023 Overview (06/24/2024): Intracranial aneurysm stent seen at [facility] 08/18/2023 History of 2019 novel coronavirus disease (COVID -19) 05/06/2022 PAD (peripheral artery disease) ([facility] V24) COVID-19 virus infection 01/10/2021 Hematoma 12/19/2014 POTS (postural orthostatic tachycardia syndrome) 12/25/2012 Hyperlipidemia 09/01/2012 Overview (06/24/2024): Other and unspecified hyperlipidemia: 11/20/17 ASCVD risk 6.5% Urinary incontinence 04/09/2011 Essential hypertension, benign 12/29/2006 Spontaneous tension pneumothorax 09/02/2006 Overview (06/24/2024): in February, Encounters Date Type Department Care Team Description 08/18/2025 Telephone Adult Medicine - [place] [address] [place] [address] Tamara Subramanian MD 07/25/2025 Results Follow-Up Gastroenterology - [address] [phone] Jeannette Louis MA 07/22/2025 10:10 AM EDT Anesthesia Event [facility] Endoscopy [address] [place] [phone] Braden Sim DO 07/22/2025 9:21 AM EDT - 07/22/2025 11:59 PM EDT Hospital Encounter [facility] Endoscopy [address] [place] [phone] Lisa Velez MD Barnes, Tyanna R, CRNA Korobkov, Vitaliy, DO Colon cancer screening Discharge Disposition: Home or Self Care 07/08/2025 1:45 PM EDT Office Visit Obstetrics & Gynecology - [address] [phone] Michelle Swanson CNM Vaginal dryness (Primary Dx) 07/08/2025 Telephone Adult Medicine - [place] [address] [place] [address] Tamara Subramanian MD from Last 3 Months Immunizations Immunization Administration Dates Next Due Influenza Quadravalent, MDCK [...] breast bx-benign- BREAST BIOPSY 11/02/2019 Right PROCEDURE: [place] BX BREAST W/DEVICE 1ST LESION ULTRASOUND GUID CEREBRAL ANEURYSM REPAIR w/coil and stent Medical History Medical History Date Comments Tobacco [...] cardiov ascular disease Elevated hemoglobin A1c 04/17/2023 DX:[place] kieran hemoglobin A1c Seizures ([facility] V24, [facility] V28) Family History Medical History Relation Name Comments [...] drink = 0.6 oz pur e alcohol) Housing Instability Answer Date Recorde d Are you worried that in the next 2 months you may not have stable housing? No 07/08/2025 Food Access & Nutrition Answer Date Rec orded Do you have access to a vari ety of food including fruits and vegetables? Yes 07/08/2025 Access to Healthcare Answer Date Record ed Within the last 3 months, ho w many times did you visit the emergency department for your medical care? 0 07/08/2025 Health Literacy Answer Date Recorded How often do you need to hav e someone help you when you read instructions, pamphlets, or other written material from your doctor or pharmacy? Never 07/08/2025 Caregiver: How often do you need to have someone help you when you read instructions, pamphlets, or other written material from your doctor or pharmacy? Not on file 07/08/2025 Financial Risk Answer Date Recorded How hard is it for you to pa y for the very basics like food, housing, medical care, and air conditioning / heating? Not very hard 07/08/2025 Transportation Answer Date Recorded Has the lack of transportati on kept you from meetings, work, or from getting things needed for daily living? No Has the lack of transportati on kept you from medical appointments or from getting medications? No 07/08/2025 Social Isolation Answer Date Recorded How often do you feel lonely or isolated from th ose around you? Never 07/08/2025 Food Risk Answer Date Recorded Within the past 12 months we worried whether our food would run out before we got money to buy more. Never true 07/08/2025 Within the past 12 months th e food we bought just didn't last and we didn't have money to get more. Never true 07/08/2025 Dependent Care Answer Date Recorded Do you need help finding or paying for care for your loved ones. For example, children librarian or elderly care for an older adult? No 07/08/2025 Education Answer Date Recorded Do you think completing more education or training, like finishing a GED, going to college, or learning a trade, would be helpful for you? No 07/08/2025 Employment and Income Answer Date Recor ded During the last four weeks, have you been actively looking for work? No 07/08/2025 Living Situation Answer Date Recorded What is your living situation? Unrecognized valu e 07/08/2025 Interpersonal Safety Answer Date Record ed Physical Abuse Unrecognized value 07/22/2025 Verbal Abuse Unrecognized value 07/22/2025 Comments No Sex and Gender Information Value Date Recorded Sex Assigned at Not on file Legal Sex Female 2:46 PM EST Gender Identity Not on file Sexual Orientation Not on file Obstetrics History * This document contains information received from the source organization and may not represent a complete record from that organization. Para Term AB IAB SAB Ectopic Multiple Livin g Live Births 4 2 2 2 2 Date Outcome GA Total Labor Labor/2nd/3rd Weight Sex Type Anes PTL Fabiola A1 A5 Name Clin 993 Term 40w 0d 8h 00m/ 2892 g (102 oz) M Vag-S pont Livin g Daniel n Delivery Location:[place], [place] 995 Term 40w 0d 8h 00m/ 3033 g (107 oz) F Vag-S pont Livin g Idalia jamile Delivery Location:[place], [place] Last Filed Vital Signs Vital Sign Reading Time Taken Comments Blood Pressure 99/60 07/22/2025 10:51 AM EDT Pulse 68 07/22/2025 10:51 AM EDT Temperature 36.4 C (97.6 F) 07/22/2025 10:31 AM EDT Respiratory Rate 18 07/22/2025 10:51 AM EDT Oxygen Saturation 98% 07/22/2025 10:51 AM EDT Inhaled Oxygen Concentration - - Weight 66.2 kg (146 lb) 07/22/2025 9:50 AM EDT Height 154.9 cm (5' 1 ) 07/22/2025 9:50 AM EDT Body Mass Index 27.59 07/22/2025 9:50 AM EDT Plan of Treatment Upcoming Encounters Date Type Department Care Team (Late st Contact Info) Description 09/09/2025 8:40 AM EST Appointment Radiology Department - [address] [phone] 01/30/2026 1:30 PM EDT Ancillary Procedure [facility] - [address] [place] [address] Health Maintenance Due Date Last Done Comments Pneumococcal Vaccine: 50+ Years (2 of 2 - PCV) 2015 01/06/2013 RSV Immunization Adult Patients (1 - Risk 50-74 years 1-dose series) 2015 Zoster Vaccines (1 of 2) 2015 Colorectal Cancer Screening: Stool Based Tests (FOBT/FIT) 09/07/2022 HIV Screening 09/07/2022 COVID-19 Vaccine ( season) 2025 09/16/2021, 01/13/2021, 12/16/2020 Influenza Vaccine (#1) 2025 , 06/17/2022, 10/26/2021, Additional history exists Hypertension/CHF/CAD Annual BMP Blood Test 04/26/2026 04/26/2025, 01/30/2024, 01/30/2024 Breast Cancer Screening 07/08/2026 07/08/20 24, 07/08/2024, 04/07/2023, Additional history exists Social Influencers of Health Screening 07/08/2026 07/08/2025 DTaP,Tdap,and Td Vaccines (4 - Td or Tdap) 10/07/2027 10/07/2017, 06/26/2005, 06/26/2005 Cervical Cancer Screening: HPV 01/07/2029 01/08/2024 Cholesterol Screening (Lipid Panel) 04/26/2030 04/26/2025, 12/20/2022 Colorectal Cancer Screening: Colonoscopy 07/22/2032 07/22/2025 Hepatitis C Screening Completed 05/25/2018 Depression Screening Completed 07/08/2025 HIB Vaccines Aged Out No longer eligi ble based on patient's age to complete this topic HPV Vaccines Aged Out No longer eligi ble based on patient's age to complete this topic Hepatitis A Vaccines Aged Out No long er eligible based on patient's age to complete this topic Hepatitis B Vaccines Aged Out No long er eligible [...] on patient's age to complete this topic Goals Goal Patient Goal Type Associated Problems Recent Progress Patient-Stated? Author Autogenerat ed Goal Care Plan Autogenerated Problem No Snow Christianson Procedures Procedure Name Priority Date/Time Associated Diagnosis Comments COLONOSCOPY Routine 07/22/2025 10:30 AM EDT Colon cancer screening COMPREHENSIVE METABOLIC PANEL Routine 04/26/2025 8:43 AM EDT Essential hypertension, benign LIPID PANEL WITH REFLEX TO DIRECT LDL Routine 04/26/2025 8:43 AM EDT Essential hypertension, benign SCREENING MAMMOGRAPHY BI 2-VIEW BREAST INC CAD Routine 07/08/2024 3:11 PM EDT Encounter for screening mammogram for malignant neoplasm of breast HPV Routine 01/08/2024 HEPATITIS C SCREENING Routine 05/25/2018 from Last 3 Months or Most Recently Relevant to Health Maintenance Results * COLONOSCOPY Anesthesia - MAC; SP ENDOSCOPY (07/22/2025 10:30 AM EDT) Anatomical Region Laterality Modality Endoscopy 07/22/2025 10:1 5 AM EDT Impressions 07/22/2025 10:32 AM EDT - The examined portion of the ileum was normal. - Diverticulosis in the sigmoid colon. - Internal hemorrhoids. - The examination was otherwise normal. - No specimens collected. Recommendation: - Repeat colonoscopy in 5-10 years for screening purposes. Narrative 07/22/2025 10:32 AM EDT [facility] GI Patient Name: Venus López Procedure Date: 07/22/2025 10:15 AM Date of : 1965 Age: 60 Gender: Female Note Status: Finalized Attending MD: Lisa Velez MD, Procedure Date No Time: 07/22/2025 Procedure: Colonoscopy Indications: Colon cancer screening in patient at increased risk: Family history of 1st-degree relative with colon polyps at age 60 years (or older) Providers: Lisa Velez MD Referring MD: Tamara Riddle MD Medicines: Propofol per Anesthesia Complications: No immediate complications. Estimated Blood Loss: Estimated blood loss: none. Procedure: Pre-Anesthesia Assessment: - ASA Grade Assessment: II - A patient with mild systemic disease. After I obtained informed consent, the scope was passed under direct vision. Throughout the procedure, the patient's blood pressure, pulse, and oxygen saturations were monitored continuously.The Colonoscope was introduced through the anus and advanced to the terminal ileum. The colonoscopy was performed without difficulty. The patient tolerated the procedure well. The quality of the bowel preparation was good. Findings: The perianal and digital rectal examinations were normal. The terminal ileum appeared normal. A few small-mouthed diverticula were found in the sigmoid colon. Internal hemorrhoids were found during retroflexion. The hemorrhoids were Grade I (internal hemorrhoids that do not prolapse). The exam was otherwise without abnormality. Procedure Code(s): --- Professional --- G0105, Colorectal cancer screening; colonoscopy on individual at high risk Diagnosis Code(s): --- Professional --- Z83.71, Family history of colonic polyps CPT copyright 2020 [employer] [place] [employer]. All rights reserved. The codes documented in this report are preliminary and upon manager appointment review may be revised to meet current compliance requirements. Lisa Velez MD 07/22/2025 10:32:02 AM This report has been signed electronically.Lisa Velez MD Number of Addenda: 0 Note Initiated On: 07/22/2025 10:15 AM Scope In: Scope Out: Endoscopy Department at [facility] - [address] [place] [phone] Procedure Note Lisa Velez MD - 07/22/2025 [facility] GI Patient Name: Venus López Procedure Date: 07/22/2025 10:15 AM Date of : 1965 Age: 60 Gender: Female Note Status: Finalized Attending MD: Lisa Velez MD, Procedure Date No Time: 07/22/2025 Procedure: Colonoscopy Indications: [facility] Family history of 1st-degree relative with colon polyps at age 60 years (or older) Providers: Lisa Velez MD Referring MD: Tamara Riddle MD Medicines: Propofol per Anesthesia Complications: No immediate complications. Estimated Blood Loss: Estimated blood loss: none. Procedure: Pre-Anesthesia Assessment: - ASA Grade Assessment: II - A patient with mild systemic disease. After I obtained informed consent, the scope was passed under direct vision. Throughout theprocedure, the patient's blood pressure, pulse, and oxygen saturations were monitored continuously.The Colonoscope was introduced through the anus and advanced to the terminal ileum. The colonoscopy was performed without difficulty. The patient tolerated the procedure well. The quality of the bowel preparation was good. Findings: The perianal and digital rectal examinations were normal. The terminal ileum appeared normal. A few small-mouthed diverticula were found in the sigmoid colon. Internal hemorrhoids were found duringretroflexion. The hemorrhoids were Grade I (internal hemorrhoids that do not prolapse). The exam was otherwise without abnormality. Procedure Code(s): --- Professional --- G0105, Colorectal cancer screening; colonoscopy on individual at high risk Diagnosis Code(s): --- Professional --- Z83.71, Family history of colonic polyps CPT copyright 2020 [employer] [place] [employer]. All rights reserved. The codes documented in this report are preliminary and upon manager appointment reviewmay be revised to meet current compliance requirements. Lisa Velez MD 07/22/2025 10:32:02 AM This report has been signed electronically.Lisa Velez MD Number of Addenda: 0 Note Initiated On: 07/22/2025 10:15 AM Scope In: Scope Out: Endoscopy Department at [facility] - [address] [place] [phone] IMPRESSION: - The examined portion of the ileum was normal. - Diverticulosis in the sigmoid colon. - Internal hemorrhoids. - The examination was otherwise normal. - No specimens collected. Recommendation: - Repeat colonoscopy in 5-10 years for screening purposes. Lisa Velez MD GI~PROCEDURE ORDERABLES Final Result * (ABNORMAL) Lipid panel with reflex to direct LDL (04/26/2025 8:43 AM EDT) Cholesterol 164 0 - 200 mg/dL LAB CHEMISTRY METHOD 04/26/2025 12:11 PM [facility] Triglycerides 164(H) 0 - 150 mg/dL LAB CHEMISTRY METHOD 04/26/2025 12:11 PM [facility] HDL 56 >=40 mg/dL LAB CHEMISTRY METHOD 04/26/2025 12:11 PM [facility] LDL Calculated 75 0 - 100 mg/dL LAB CHEMISTRY METHOD 04/26/2025 12:11 PM [facility] VLDL Cholesterol Je 32.8 mg/dL LAB CHEMISTRY METHOD 04/26/2025 12:11 PM [facility] Non HDL Chol. (LDL+VLDL) 108 <145 mg/dL LAB CHEMISTRY METHOD 04/26/2025 12:11 PM [facility] Chol/HDL Ratio 2.9 0.0 - 4.4 LAB CHEMISTRY METHOD 04/26/2025 12:11 PM [facility] Blood Venous blood specimen / Unknown Venipuncture / Unknown 04/26/2025 8:43 AM EDT 04/26/2025 8:43 AM EDT us Chacho PIERSON LAB BLOOD ORDERABLES Final Res ult [facility] [address] [place] [address], [place] [phone] * Comprehensive metabolic panel (04/26/2025 8:43 AM EDT) Sodium 138 133 - 145 mmol/L LAB CHEMISTRY METHOD 04/26/2025 12:11 PM [facility] Potassium 4.3 3.5 - 5.5 mmol/L LAB CHEMISTRY METHOD 04/26/2025 12:11 PM [facility] Chloride 105 96 - 110 mmol/L LAB CHEMISTRY METHOD 04/26/2025 12:11 PM [facility] CO2 29 21 - 32 mmol/L LAB CHEMISTRY METHOD 04/26/2025 12:11 PM [facility] Anion Gap 4 3 - 11 LAB CHEMISTRY METHOD 04/26/2025 12:11 PM [facility] Glucose 96 70 - 100 mg/dL LAB CHEMISTRY METHOD 04/26/2025 12:11 PM [facility] BUN 13 5 - 25 mg/dL LAB CHEMISTRY METHOD 04/26/2025 12:11 PM [facility] Creatinine 0.73 0.50 - 1.10 mg/dL LAB CHEMISTRY METHOD 04/26/2025 12:11 PM [facility] eGFR 94 >=60 mL/min/1. 73m2 LAB CHEMISTRY METHOD 04/26/2025 12:11 PM [facility] Comment:Calculation based on the Chronic Kidney Disease Epidemiology Collaboration (CKD-EPI) equation refit without adjustment for race. BUN/Creatinine Ratio 17.8 LAB CHEMISTRY METHOD [facility]2025 12:11 [facility] Calcium 9.5 8.5 - 10.5 mg/dL LAB CHEMISTRY METHOD 04/26[facility]2025 12:11 [facility] AST (SGOT) 18 10 - 42 unit/L LAB CHEMISTRY METHOD 04/26/2025 12:11 PM [facility] ALT (SGPT) 38 10 - 60 unit/L LAB CHEMISTRY METHOD 04/26/2025 12:11 PM [facility] Alkaline Phosphatase 76 42 - 121 unit/L LAB CHEMISTRY METHOD 04/26/2025 12:11 PM [facility] Total Protein 7.5 6.0 - 8.0 g/dL LAB CHEMISTRY METHOD 04/26/2025 12:11 PM [facility] Albumin 4.2 3.2 - 5.0 g/dL LAB CHEMISTRY METHOD 04/26/2025 12:11 PM [facility] Total Bilirubin 0.3 0.0 - 1.4 mg/dL LAB CHEMISTRY METHOD 04/26/2025 12:11 PM [facility] Blood Venous blood specimen / Unknown Venipuncture / Unknown 04/26/2025 8:43 AM EDT 04/26/2025 8:43 AM EDT Ch[facility]ERSON LAB BLOOD ORDERABLES Final Res ult [facility] [address] [place] [address], * SCREENING MAMMOGRAPHY BI 2-VIEW BREAST INC [...] Routine screening. No current breast complaints. Family history of breast cancer in mother Comparison: Multiple priors dating back to 04/26/2022 Technique: Bilateral full-field digital 3D mammography was performed using standard CC and MLO projections CAD was used to evaluate this mammogram. Findings: Density: There are scattered areas of fibroglandular density-B RIGHT: No suspicious masses, groups of microcalcification or areas of architectural distortion identified. Stable typically benign parenchymal asymmetries. Upper outer posterior depth asymmetries are grossly stable. LEFT: No suspicious masses, groups of microcalcifications or areas of architectural distortion identified. Stable typically benign parenchymal asymmetries IMPRESSION: : 1. No mammographic evidence of malignancy. BI-RADS Category 2 benign findings Recommendation: Routine annual screening mammography is recommended [address] [phone] Procedure Note Erika Holcomb MD - 07/27/2024 [...] Recommendation: Routine annual screening mammography is recommended [address] [phone] Tamara Riddle MD IMG XR PROCEDURES Final Result * Hm Cervical Cancer Screening: HPV (01/08/2024) Cervical Cancer Screening: HPV Negative, Abstracted Historical Provider HEALTH MAINTENANCE Final Result * Hepatitis C Screening (05/25/2018) Hepatitis C Screening Abstracted Historical Provider HEALTH MAINTENANCE Final Result from Last 3 Months or Most Recently Relevant to Health Maintenance Additional Health Concerns Active Problems Noted Date Diagnosed Date Autogenerated Problem 06/27/2025 Insurance [facility] Care Teams Utility Technician Relationship Specialty Start Date End Date Tamara Riddle MD [address] [place] [phone] PCP - General 02/05/11
--- OUTSIDE RECORDS SUMMARY | 2025-08-23 10:22 | XMS_ITS | Encounter Summary ---
Author Organization [facility] Address [address] [place] [address] Care Team Providers Care Textile Engraver Name Role Phone Tamara Omalley MD Primary Care Prov ider Reason for Referral * Consultation (Routine) - Closed Specialty Diagnoses / Procedures Referred By Angelita monson Referred To Contact Neurology Diagnoses Migraine without aura, not intractable, without status migrainosus Tamara Omalley MD [address] [place] [address] Phone: tel: fax: April Dunbar, [facility] [address] [facility] [address] [place] [address] Phone: tel: fax: Referral ID Status Reason Start Date Expiration Date V isits Requested Visits Authorized [id number] Closed Specialty Services Required 08/18/2025 08/18/2026 1 1 Encounter Details Date Type Department Care Team (Late st Contact Info) Description 08/18/2025 Telephone Adult Medicine - [place] [address] [place] [phone] Tamara Omalley MD [address] [place] [address] Social History Tobacco Use Types Packs/Day Years Used Date Smoking Tobacco: Former Cigarettes Smokeless Tobacco: Never Alcohol Use Standard Drinks/Week Comments Yes 0 [...] care for your loved ones. For example, school childcare attendant or elderly care for an older adult? [...] on file Sexual Orientation Not on file documented as of this encounter Progress Notes * Yadi Hawkins - 08/18/2025 10:47 AM EST Copied from [facility] #[id number]. Topic: Referral - Request >> Aug 18, 2025 10:44 AM Yadi Pacheco wrote: JORGITO LÓPEZ called requesting a neurology and sleep medicine referral. What insurance does the patient have today? Payor: @[email or web address]/@[facility]@ Referrals cannot be processed if the insurance is not accurate. If the insurance listed above is NO BILLING INFORMATION FOUND FOR THIS ENCOUNTER then the patients correct insurance must be obtainedand registered in [facility] or their referral can not be processed. Name of person calling to request this referral? Mady Referred To Provider (Include first and last name): April Dunbar NPI (if known): [id number] Order/Specialty requested Neurology Chief Complaint (Note: This is not a body part or a procedure): g43.009 Has the patient seen provider for this problem/Dx before? yes Referred To Provider Address: [address] [place], [place] [id number] Referred To Provider Referred To Provider Does patient have an appointment scheduled?: yes If yes, what is the date of the appointment?: 08/23/2025 Is this a retro request? No Number of visits requested: 6 Is this appointment related to: MVA or worker compensation? NO documented in this encounter Plan of Treatment Upcoming Encounters Date Type Department Care Team (Late st Contact Info) Description 09/09/2025 8:40 AM EST Appointment Radiology Department - [address] [address] 01/30/2026 1:30 PM EDT Ancillary Procedure [facility] - [address] [place] [phone] Scheduled Referrals Name Type Priority Associated Diagnoses Orde r Schedule Ambulatory referral to Neurology Outpatient Referral Routine Migraine without aura, not intractable, without status migrainosus Expected: 08/18/2025, Expires: 08/18/2026 documented as of this encounter Goals Goal Patient Goal Type Associated Problems Recent Progress Patient-Stated? Author Autogenerat ed Goal Care Plan Autogenerated Problem No Snow Christianson documented as of this encounter Visit Diagnoses Diagnosis Migraine without aura, not intractable, without status migrainosus- Primary documented in this encounter Additional Health Concerns Active Problems Noted Date Diagnosed Date Autogenerated Problem 06/27/2025 Assessment Noted Time PHQ-9 Depression Total Score: 0 07/08/20 25 11:02 AM EDT documented as of this encounter Care Teams Textile Engraver Relationship Specialty Start Date End Date Tamara Omalley MD [address] [place] [id number] PCP - General 02/05/11 documented as of this encounter
--- OUTSIDE RECORDS SUMMARY | 2025-08-23 10:22 | XMS_ITS | Encounter Summary ---
Author Organization [facility] Address [address] [place] [address] Care Team Providers Care Hand Shaper Name Role Phone Tamara Omalley MD Primary Care Prov ider Encounter Details Date Type Department Care Team (Late st Contact Info) Description 07/25/2025 Results Follow-Up Gastroenterology - [address] [place] [phone] Jeannette Louis [place] Social History Tobacco Use Types Packs/Day Years [...] care for your loved ones. For example, child advocate or elderly care for an older adult? [...] on file documented as of this encounter Plan of Treatment Upcoming Encounters Date Type Department Care Team (Late st Contact Info) Description 09/09/2025 8:40 AM EST Appointment Radiology Department [address] [address] 01/30/2026 1:30 PM EDT Ancillary Procedure [facility] - [facility] [address] [facility] [address] [place] [address] documented as of this encounter Goals Goal Patient Goal Type Associated Problems Recent Progress Patient-Stated? Author Autogenerat ed Goal Care Plan Autogenerated Problem No Snow Christianson documented as of this encounter Visit Diagnoses Not on filedocumented in this encounter Additional Health Concerns Active Problems Noted Date Diagnosed Date Autogenerated Problem 06/27/2025 Assessment Noted Time PHQ-9 Depression Total Score: 0 07/08/20 25 11:02 AM EDT documented as of this encounter Care Teams Hand Shaper Relationship Specialty Start Date End Date Tamara Omalley MD [address] [place] [id number] PCP - General 02/05/11 documented as of this encounter
== END 2025-08-23 10:22 | disposition home or self-care (01) ==
LOC: HO.HSMS 09:17
PROVIDERS: PCP Internal Medicine; Visit Provider Nurse Practitioner Family
DX: R56.9 Unspecified convulsions (principal); G43.009 Migraine without aura, not intractable, without status migrainosus; G43.109 Migraine with aura, not intractable, without status migrainosus; Z98.890 Other specified postprocedural states; G62.89 Other specified polyneuropathies
CPT/HCPCS: 99214